=== PATIENT | female | born 1935 | race Caucasian/White ===

== ENCOUNTER 2017-12-06 15:48 | Emergency (ER) | payer MEDICARE, BC ==
[~2017-12-06] VITALS: Ht 154.9 cm; Wt 61.2 kg
[~2017-12-06 15:48] MED LIST: BENICAR; CARB200 PO; CIPDEXSU OS; COLE625 PO; LEVFLO500 PO; METPRE4DP PO; OLME20 PO; TEGRETOL; WARF6 PO; [UNRECOGNIZED DRUG - CODE] TOP
[2017-12-06 17:28] LABS: BASOPHILS ABSOLUTE AUTO 0.04 K/mm3 (0.00-0.23); BASOPHILS PERCENT AUTO 0 % (0-2); EOSINOPHILS PERCENT AUTO 1 % (0-6); Hematocrit 43.5 % (33.0-51.0); Hemoglobin 14.5 g/dL (11.5-16.0); IMMATURE GRAN ABSOLUTE AUTO 0.02 K/mm3 (0.00-0.10); IMMATURE GRAN PERCENT AUTO 0 % (0-1); LYMPHOCYTES ABSOLUTE AUTO 2.22 K/mm3 (0.84-5.20); LYMPHOCYTES PERCENT AUTO 23 % (21-46); MONOCYTES ABSOLUTE AUTO 1.19 K/mm3 (0.16-1.47); MONOCYTES PERCENT AUTO 13 % (4-13); Mean Corpuscular HGB 31.5 pg (26.0-34.0); Mean Corpuscular HGB Conc 33.3 g/dL (31.5-36.5); Mean Corpuscular Volume 95 fL (80-100); Mean Platelet Volume 10.3 fL (9.1-12.4); NEUTROPHILS ABSOLUTE AUTO 5.95 K/mm3 (1.96-9.15); NEUTROPHILS PERCENT AUTO 63 % (41-73); Platelet Count 189 K/mm3 (150-400); RDW Coefficient Variation 13.1 % (11.7-14.2); RDW Standard Deviation 45.1 fL (35.1-46.3); White Blood Cell Count 9.52 K/mm3 (4.00-11.30)
[2017-12-06 17:41] LABS: International Normalized Ratio 1.89; Prothrombin Time Results 20.1 Sec (9.7-11.5)
[2017-12-06 17:50] LABS: Alanine Aminotransfer (ALT/SGP 23 U/L (12-78); Albumin, Blood 3.9 g/dL (3.4-5.0); Alk Phos 88 U/L (50-136); Anion Gap 9 mmol/L (6-16); Aspartate Aminotrans (AST/SGOT 29 U/L (12-37); Bilirubin, Total 0.7 mg/dL (0.1-1.0); Blood Urea Nitrogen 16 mg/dL (8-24); Bun/Creatinine Ratio 21.5 (12.0-20.0); CO2, Blood 27 mmol/L (21-32); Calcium, Blood 8.8 mg/dL (8.5-10.1); Chloride, Blood 102 mmol/L (98-108); Creatinine, Blood 0.74 mg/dL (0.40-1.00); Glomerular Filtration Rate >60 (60-); Glucose, Blood 73 mg/dL (70-99); Potassium, Blood 4.3 mmol/L (3.5-5.5); Sodium, Blood 138 mmol/L (136-145); Total Protein, Blood 7.9 g/dL (6.4-8.2)
[2017-12-09 10:38] LABS: Carbamazepine 5.1 ug/mL (4.0-12.0)
== END 2017-12-06 18:42 | disposition home or self-care (01) ==
LOC: ER 15:48
PROVIDERS: Emergency Medicine
DX: R55 Syncope and collapse (principal); R79.1 Abnormal coagulation profile; Z88.2 Allergy status to sulfonamides; Z79.01 Long term (current) use of anticoagulants; I10 Essential (primary) hypertension; I48.91 Unspecified atrial fibrillation; R56.9 Unspecified convulsions; Z79.899 Other long term (current) drug therapy; W01.10XA Fall on same level from slipping, tripping and stumbling with subsequent striking against unspecified object, initial encounter
CPT/HCPCS: 36415; 70450; 72125; 80053; 80156; 85025; 85610; 85730; 93005; 93010; 99284

== ENCOUNTER → 2018-11-19 | Outpatient (CLI) | payer MEDICARE, BC ==
[2018-11-19 10:50] LABS: Campylobacter Sp Not Detected (NOT DETECT); E. Coli O157 Not Detected (NOT DETECT); Enteroaggregative E. coli-EAEC Not Detected (NOT DETECT); Enteropathogenic E. coli-EPEC Not Detected (NOT DETECT); Enterotoxigenic E. coli-ETEC Not Detected (NOT DETECT); Plesiomonas Shigelloides Not Detected (NOT DETECT); Salmonella Sp Not Detected (NOT DETECT); Shiga Toxin-prod E. coli-STEC Not Detected (NOT DETECT); Shigella/Enteroin E. coli-EIEC Not Detected (NOT DETECT); Vibrio Cholerae Not Detected (NOT DETECT); Vibrio Sp Not Detected (NOT DETECT); Yersinia Enterocolitica Not Detected (NOT DETECT)
[2018-11-19 10:51] LABS: Adenovirus F 40/41 Not Detected (NOT DETECT); Astrovirus Not Detected (NOT DETECT); Cryptosporidium Not Detected (NOT DETECT); Cyclospora Cayetanensis Not Detected (NOT DETECT); Entamoeba Histolytica Not Detected (NOT DETECT); Giardia Lamblia Not Detected (NOT DETECT); Norovirus GI/GII Not Detected (NOT DETECT); Rotavirus A Not Detected (NOT DETECT); Sapovirus Not Detected (NOT DETECT)
== END | disposition home or self-care (01) ==
LOC: LAB SHORT 06:00 → LAB 06:00 → LAB FUT 11-13 08:05
PROVIDERS: Internal Medicine Gastroenterology
DX: R19.4 Change in bowel habit (principal)
CPT/HCPCS: 87507

== ENCOUNTER → 2019-04-13 | Outpatient (CLI) | payer MEDICARE, BC | END | disposition home or self-care (01) | LOC: LAB SHORT 17:48 → LAB 17:48 | DX: R30.0 Dysuria (principal) | CPT/HCPCS: 87077; 87086; 87186 ==

== ENCOUNTER 2019-08-12 08:21 | Day surgery (SDC) | payer MEDICARE, BC ==
[~2019-08-12] VITALS: Ht 154.9 cm; Wt 61.0 kg
[~2019-08-12 08:21] MED LIST changes: +LOSARTAN POTASS50 MG PO; +PROLIA60 MG/1 ML SC; +WARF3 PO
--- NOTE | 2019-08-12 10:58 | NUR ---
MANUAL PRESSURE HELD TO RIGHT FEMORAL GROIN ACCESS SITE FOR 20MINUTES. SUZANNE PLACED. NO BLEEDING, OOZING, SWELLING OR HEMATOMA NOTED ONCE PRESSURE RELEASED. PT EDUCATED ON SIGNS AND SYMPTOMS FOR ANY POSSIBLE BLEED. CALL LIGHT WITHIN REACH. VSS REMAIN STABLE. SITE REVIEWED WITH [facility] RNs. PT REMINDED TO KEEP HEAD DOWN FOR THE NEXT FEW HOURS. RECEIVING RNs DENY ANY QUESTIONS OR CONCERNS.
--- NOTE | 2019-08-12 15:30 | NUR ---
pt dressed, iv dc'd intact, pt dc'd by wc with sigother driving pt. r groin site stable, pt amb to btr well, see rhythm strip record for VS
== END 2019-08-12 15:00 | disposition home or self-care (01) ==
LOC: MHTC 08:21
DX: Z01.810 Encounter for preprocedural cardiovascular examination (principal); I35.0 Nonrheumatic aortic (valve) stenosis; I25.10 Atherosclerotic heart disease of native coronary artery without angina pectoris; I11.9 Hypertensive heart disease without heart failure; I26.90 Septic pulmonary embolism without acute cor pulmonale; I48.21 Permanent atrial fibrillation; Z88.2 Allergy status to sulfonamides; Z79.899 Other long term (current) drug therapy
CPT/HCPCS: 36415; 85610; 93005; 93010; 93454; 99152; C1769; C1894; J1644; J2250; J3010; J7030; J7040; Q9967

== ENCOUNTER 2019-09-12 19:40 | Emergency (ER) | payer MEDICARE, BC ==
[~2019-09-12] VITALS: Ht 154.9 cm; Wt 61.7 kg
[2019-09-12 20:11] LABS: BASOPHILS ABSOLUTE AUTO 0.07 K/mm3 (0.00-0.23); BASOPHILS PERCENT AUTO 1 % (0-2); EOSINOPHILS ABSOLUTE AUTO 0.16 K/mm3 (0.00-0.68); EOSINOPHILS PERCENT AUTO 2 % (0-6); Hematocrit 37.1 % (33.0-51.0); Hemoglobin 12.4 g/dL (11.5-16.0); IMMATURE GRAN ABSOLUTE AUTO 0.02 K/mm3 (0.00-0.10); IMMATURE GRAN PERCENT AUTO 0 % (0-1); LYMPHOCYTES ABSOLUTE AUTO 1.53 K/mm3 (0.84-5.20); LYMPHOCYTES PERCENT AUTO 16 % (21-46); MONOCYTES PERCENT AUTO 11 % (4-13); Mean Corpuscular HGB 32.2 pg (26.0-34.0); Mean Corpuscular HGB Conc 33.4 g/dL (31.5-36.5); Mean Corpuscular Volume 96 fL (80-100); Mean Platelet Volume 10.6 fL (9.1-12.4); NEUTROPHILS ABSOLUTE AUTO 6.76 K/mm3 (1.96-9.15); NEUTROPHILS PERCENT AUTO 70 % (41-73); Platelet Count 220 K/mm3 (150-400); RDW Coefficient Variation 12.1 % (11.7-14.2); RDW Standard Deviation 42.8 fL (35.1-46.3); Red Blood Cell Count 3.85 M/mm3 (3.80-5.20); White Blood Cell Count 9.64 K/mm3 (4.00-11.30)
[2019-09-12 20:27] LABS: International Normalized Ratio 1.81; Prothrombin Time Results 18.2 Sec (9.7-11.5)
[2019-09-12] MEDS ORDERED: ENOX60I SC (21:39)
[2019-09-12 22:00] LABS: Anion Gap 7 mmol/L (6-16); Blood Urea Nitrogen 19 mg/dL (8-24); CO2, Blood 25 mmol/L (21-32); Calcium, Blood 8.3 mg/dL (8.5-10.1); Chloride, Blood 105 mmol/L (98-108); Creatinine, Blood 0.76 mg/dL (0.40-1.00); Glomerular Filtration Rate >60 (60-); Glucose, Blood 99 mg/dL (70-99); Potassium, Blood 4.2 mmol/L (3.5-5.5); Sodium, Blood 137 mmol/L (136-145)
== END 2019-09-12 23:45 | disposition home or self-care (01) ==
LOC: ER 19:40
PROVIDERS: Physician Assistant
DX: K91.871 Postprocedural hematoma of a digestive system organ or structure following other procedure (principal); I10 Essential (primary) hypertension; Z88.2 Allergy status to sulfonamides; Z79.899 Other long term (current) drug therapy; Z79.01 Long term (current) use of anticoagulants
CPT/HCPCS: 36415; 80048; 85025; 85610; 85730; 93926; 99284-25; A9270; A9270-GY

== ENCOUNTER 2019-09-13 12:02 | Inpatient (IN) | payer MEDICARE, BC ==
[~2019-09-13] VITALS: Ht 154.9 cm; Wt 61.5 kg
[~2019-09-13 12:02] MED LIST changes: +ENOX60I SC
--- NOTE | 2019-09-13 18:33 | NUR ---
PT ADMITTED. PT ADMITTED AT 1814. PT IN STABLE CONDITION. SBP 89. HR ELEVATED AT 104. PT ENCOURAGED TO INCREASE PO INTAKE. PT DR. SANTIAGO ORDER. NO IV AT THIS TIME & LABS PUSHED TO AM PER DR. SANTIAGO. PT RESTING IN BED CURRENTLY. CALL LIGHT IN REACH. WILL CONTINUE TO MONITOR.
[2019-09-14 03:48] LABS: BASOPHILS ABSOLUTE AUTO 0.03 K/mm3 (0.00-0.23); BASOPHILS PERCENT AUTO 0 % (0-2); EOSINOPHILS ABSOLUTE AUTO 0.01 K/mm3 (0.00-0.68); EOSINOPHILS PERCENT AUTO 0 % (0-6); Hematocrit 26.1 % (33.0-51.0); Hemoglobin 8.7 g/dL (11.5-16.0); IMMATURE GRAN ABSOLUTE AUTO 0.07 K/mm3 (0.00-0.10); IMMATURE GRAN PERCENT AUTO 1 % (0-1); LYMPHOCYTES ABSOLUTE AUTO 1.27 K/mm3 (0.84-5.20); LYMPHOCYTES PERCENT AUTO 9 % (21-46); MONOCYTES ABSOLUTE AUTO 1.38 K/mm3 (0.16-1.47); MONOCYTES PERCENT AUTO 10 % (4-13); Mean Corpuscular HGB 32.5 pg (26.0-34.0); Mean Corpuscular HGB Conc 33.3 g/dL (31.5-36.5); Mean Corpuscular Volume 97 fL (80-100); NEUTROPHILS PERCENT AUTO 81 % (41-73); Platelet Count 190 K/mm3 (150-400); RDW Coefficient Variation 12.3 % (11.7-14.2); RDW Standard Deviation 43.7 fL (35.1-46.3); Red Blood Cell Count 2.68 M/mm3 (3.80-5.20); White Blood Cell Count 14.16 K/mm3 (4.00-11.30)
--- NOTE | 2019-09-14 04:13 | NUR ---
SHIFT SUMMARY PT HAS BEEN EXPERIENCING PAIN IN THE LEFT GROIN THIS SHIFT. SHE STATED THIS AM THAT IT HAS RADIATED TO KNEE. PEDAL PULSES STRONG BILATERALLY. NO OTHER COMPLAINTS THROUGHOUT THE SHIFT. WILL CONTINUE TO MONITOR.
[2019-09-14 05:51] LABS: International Normalized Ratio 3.73; Prothrombin Time Results 35.1 Sec (9.7-11.5)
[2019-09-14 12:56] LABS: Hematocrit 24.5 % (33.0-51.0); Hemoglobin 8.3 g/dL (11.5-16.0); Mean Corpuscular HGB 33.1 pg (26.0-34.0); Mean Corpuscular HGB Conc 33.9 g/dL (31.5-36.5); Mean Corpuscular Volume 98 fL (80-100); Mean Platelet Volume 10.2 fL (9.1-12.4); Platelet Count 183 K/mm3 (150-400); RDW Coefficient Variation 12.5 % (11.7-14.2); RDW Standard Deviation 44.3 fL (35.1-46.3); Red Blood Cell Count 2.51 M/mm3 (3.80-5.20)
--- NOTE | 2019-09-14 13:45 | NUR ---
DR. REA NOTIFIED OF PT NOON LAB RESULTS. WBC INCREASED. DR. GREENE. WILL CONITNUE TO MONITOR.
--- NOTE | 2019-09-14 17:18 | NUR ---
SHIFT SUMMARY PT SWELLING TO L GROIN HAS DECREASED. PT STATES PAIN IS STILL VERY PERSISTANT. PT TOLERATING 25MCG Q4H PRN. NO OTHER CHANGES IN ASSESSMENT AT THIS TIME. PT TO START PHYSICAL THERAPY TOMORROW. HR ELEVATED IN THE LOW 100S BUT CONSISTANT WITH THIS HOSPITALIZATION. PT CURRENTLY IN AFIB WITH IRREGULAR HR. OTHER VITALS STABLE. AFIBRILE. PT INC MOST THE SHIFT. VERY FOUL SMELLING URINE. WILL CONTINUE TO MONITOR UNTIL TURNOVER IS COMPLETE.
[2019-09-15 04:09] LABS: BASOPHILS ABSOLUTE AUTO 0.03 K/mm3 (0.00-0.23); BASOPHILS PERCENT AUTO 0 % (0-2); EOSINOPHILS ABSOLUTE AUTO 0.01 K/mm3 (0.00-0.68); EOSINOPHILS PERCENT AUTO 0 % (0-6); Hematocrit 21.3 % (33.0-51.0); IMMATURE GRAN ABSOLUTE AUTO 0.22 K/mm3 (0.00-0.10); IMMATURE GRAN PERCENT AUTO 1 % (0-1); LYMPHOCYTES ABSOLUTE AUTO 2.17 K/mm3 (0.84-5.20); LYMPHOCYTES PERCENT AUTO 10 % (21-46); MONOCYTES ABSOLUTE AUTO 2.46 K/mm3 (0.16-1.47); MONOCYTES PERCENT AUTO 12 % (4-13); Mean Corpuscular HGB 32.9 pg (26.0-34.0); Mean Corpuscular HGB Conc 32.9 g/dL (31.5-36.5); Mean Corpuscular Volume 100 fL (80-100); Mean Platelet Volume 10.1 fL (9.1-12.4); NEUTROPHILS ABSOLUTE AUTO 16.13 K/mm3 (1.96-9.15); NEUTROPHILS PERCENT AUTO 77 % (41-73); NRBC ABSOLUTE 0.05 K/mm3 (0.00-0.02); NRBC Auto 0.2 /100 WBC (0.0-0.2); Platelet Count 234 K/mm3 (150-400); RDW Coefficient Variation 12.8 % (11.7-14.2); RDW Standard Deviation 45.8 fL (35.1-46.3); Red Blood Cell Count 2.13 M/mm3 (3.80-5.20); White Blood Cell Count 21.02 K/mm3 (4.00-11.30)
[2019-09-15 04:30] LABS: Prothrombin Time Results 63.8 Sec (9.7-11.5)
[2019-09-15 04:34] LABS: International Normalized Ratio 7.2
--- NOTE | 2019-09-15 05:45 | NUR ---
PAGED AT 0448 RE:CRITICAL INR NOW 7.2, WAS 3.73 AND ATTEMPTED A 2ND TIME 0515. HE CALLED BACK AT 0540 AND INSTRUCTED TO CONT TO MONITOR INR. THIS RN ALSO REPORTED TRENDING DOWNWARD HGB/HCT NOW 7.0/21.3, WAS 8.3/24.5. NEW ORDER RECIEVED TO TRANSFUSE 1 UNIT PRBC'S. ORDERS PLACED FOR TYPE AND CROSS W/TRANSFUSION. WILL ADMINISTER WHEN ARRIVES FROM LAB.
--- NOTE | 2019-09-15 06:18 | NUR ---
LAB HAVING DIFFICULTY W/TYPE AND CROSS DRAW BUT CONTINUING TO ATTEMPT.
--- NOTE | 2019-09-15 06:19 | NUR ---
PT REPORTS SENSATION OF INCREASED SWELLING TO L.LEG/GROIN/FELIX AREA. RN AGREES D/T SKIN FEELING SLIGHTLY TIGHTER AND MORE FIRM TO L.INNER THIGH/GROIN. BRUISING DOESN'T APPEAR WORSE THOUGH.
--- NOTE | 2019-09-15 06:40 | NUR ---
SUMMARY: A/OX4, CALLS APPROPRIATELY AND SPECIFIES NEEDS. PT ON BEDREST AND USES BEDPAN W/LOG ROLL ASSIST. HGB/HCT TRENDED DOWN THIS SHIFT W/NEW ORDERS TO TYPE AND CROSS AND TRANSFUSE 1 UNIT. PT WAS DIFFICULT LAB DRAW SO WE'RE STILL AWAITING BLOOD FROM LAB. INR WAS ALSO CRITICAL THIS AM, NOW 7.2 BUT INSTRUCTED TO CONTINUE MONITORING IT. L.INNER AND POSTERIOR THIGH AND GROIN APPEAR MORE SWOLLEN AND FIRM THIS AM. BRUISING IS DARKER IN COLOR TO THAT REGION BUT BRUISES TO ABDO AND ELSEWHERE SEEM UNCHANGED. PT STATES PAIN IS ALSO WORSE TO L.LEG THIS AM BUT HAS REFUSED PRN PAIN MEDS EXCEPT FENT 25MCG IV PRN X1. ICE PACKS REMAINS IN PLACE. PT HAS KNOWN AFIB BUT COUMADIN IS ON HOLD. NO ACUTE CHANGES, VSS/AFEBRILE DESPITE S/S WORSENING BLEEDING. WCTM AND REPORT TO DAY RN PLAN TO ROLL PT DURING SHIFT REPORT TO ALLOW DAY RN TO THOROUGHLY VISUALIZE HEMATOMA AND SWELLING AT START OF SHIFT.
--- NOTE | 2019-09-15 17:32 | NUR ---
SHIFT SUMMARY PATIENT MEDICATED X2 FOR PAIN THIS SHIFT. DENIES NAUSE AND SHORTNESS OF BREATH. PATIETN HAD ONE UNIT OF RBC'S TODAY. PATIENT HAD CT OF LEFT LEG HEMATOMA. PT DEFERRED TODAY. AT BEDSIDE. CALL LIGHT IN REACH.
[2019-09-15 18:22] LABS: Hemoglobin 7.6 g/dL (11.5-16.0); Mean Corpuscular HGB 31.3 pg (26.0-34.0); Mean Platelet Volume 9.4 fL (9.1-12.4); Platelet Count 200 K/mm3 (150-400); RDW Coefficient Variation 16.4 % (11.7-14.2); RDW Standard Deviation 55.3 fL (35.1-46.3); Red Blood Cell Count 2.43 M/mm3 (3.80-5.20); White Blood Cell Count 19.82 K/mm3 (4.00-11.30)
[2019-09-15 18:23] LABS: Mean Corpuscular Volume 95 fL (80-100)
[2019-09-15 18:37] LABS: International Normalized Ratio 1.65; Prothrombin Time Results 16.7 Sec (9.7-11.5)
--- NOTE | 2019-09-16 05:05 | NUR ---
SHIFT SUMMARY: 83 Y/O FEMALE RESTED COMFORTABLY ALL SHIFT, DENIES NEED FOR PAIN OR NAUSEA, LEFT GROIN SLIGHTLY HARD TO TOUCH WITH BRUISING FROM ANTERIOR GROIN TO POSTERIOR ASPECT OF LEFT BUTTOCK, ALERT AND ORIENTED X 4, HAPPY AND COOPERATIVE, BED ALARM APPLIED, BED LOW POSITION WITH CALL LIGHT AT SIDE.
[2019-09-16 05:41] LABS: International Normalized Ratio 1.08
[2019-09-16 05:42] LABS: Prothrombin Time Results 11.4 Sec (9.7-11.5)
[2019-09-16 06:50] LABS: Hematocrit 22.4 % (33.0-51.0); Hemoglobin 7.3 g/dL (11.5-16.0)
[2019-09-16 13:21] LABS: Hematocrit 25.3 % (33.0-51.0); Hemoglobin 8.3 g/dL (11.5-16.0)
--- NOTE | 2019-09-16 16:43 | NUR ---
SHIFT SUMMARY NO ACUTE CHANGES. PATIENT DENIES PAIN, NAUSEA, AND SHORTNESS OF BREATH. PATIENT STATES LEFT LEG IS FEELING SOMEWHAT BETTER. PATIENT WORKED WITH PT TODAY. UP ONE ASSIST WITH FWW. PATIENT IS LIKELY A SNF DISCHARGE IN THE NEXT FEW DAYS. CALL LIGHT IN REACH.
[2019-09-16 21:09] LABS: Hematocrit 20.3 % (33.0-51.0); Hemoglobin 6.6 g/dL (11.5-16.0)
--- NOTE | 2019-09-16 22:09 | NUR ---
2115 HG 6.6; Brooke WILSON, SYSTEM SUPPORT TECHNICIAN ADVISED WITH ORDERS FOR REDRAW HG/HCT 09/17/19. Brooke WILSON ADVISED OF PREVIOUS LABS RESULTS, VITAL SIGNS STABLE, NO PAIN OR ACTIVE BLEEDING NOTED.
--- NOTE | 2019-09-17 04:38 | NUR ---
SHIFT SUMMARY: 83 Y/O FEMALE RESTED COMFORTABLY ALL SHIFT, HAPPY AND COOPERATIVE, DENIES PAIN OR NAUSEA, LEFT GROIN AND LEG HAS DECREASED HARDNESS TO TISSUE NOTED WHILE ELEVATED ON ONE PILLOW, BED ALARM APPLIED, BED LOW POSITION WITH CALL LIGHT AT SIDE.
[2019-09-17 05:09] LABS: Hematocrit 20.7 % (33.0-51.0); Hemoglobin 6.6 g/dL (11.5-16.0)
[2019-09-17 05:19] LABS: International Normalized Ratio 0.98; Prothrombin Time Results 10.4 Sec (9.7-11.5)
[2019-09-17 13:23] LABS: Hemoglobin 9.3 g/dL (11.5-16.0)
[2019-09-17 22:23] LABS: Hematocrit 24.8 % (33.0-51.0); Hemoglobin 8.1 g/dL (11.5-16.0)
--- NOTE | 2019-09-17 23:43 | NUR ---
2000 PTS HAS THE FOLLOWING MEASUREMENTS IN CIRCUMFERENCE TO LOWER EXTREMITIES: LEFT CALF: 38 CM LEFT THIGH: 53 CM RIGHT CALF: 34.5 CM RIGHT THIGH: 47 CM LEFT GROIN AND POSTERIOR BUTTOCK BRUISED AND SOFT TO TOUCH, DENIES NEED FOR ANY NARCOTICS AT THIS TIME. LEFT FOOT WARM, SLIGHT NUMBNESS VOICED, DIFFICULTY MOVING LEG WITHOUT ASSISTANCE. ALERT AND ORIENTED X 4, BED ALARM APPLIED, BED LOW POSITION WITH CALL LIGHT AT SIDE.
[2019-09-18 06:18] LABS: International Normalized Ratio 0.97; Prothrombin Time Results 10.3 Sec (9.7-11.5)
--- NOTE | 2019-09-18 07:15 | NUR ---
SHIFT SUMMARY: 83 Y/O FEMALE RESTED COMFORTABLY ALL SHIFT, PT STILL HAS LARGE AMOUNT BRUISING NOTED LEFT UPPER THIGH/ABD AND LEFT BUTTOCK, SEE PREVIOUS NOTE FOR MEASUREMENTS TAKEN LAST PM ON EXTREMITY CIRCUMFERENCES, NO HCG/HCT LABS WERE DRAWN THIS AM, PT 10.3, INR 0.97, BED LOW POSITION WITH CALL LIGHT AT SIDE, BED ALARM APPLIED.
[2019-09-18 08:49] LABS: Hematocrit 24.6 % (33.0-51.0); Hemoglobin 7.9 g/dL (11.5-16.0)
[2019-09-18 16:47] LABS: Hematocrit 26.8 % (33.0-51.0); Hemoglobin 8.8 g/dL (11.5-16.0)
--- NOTE | 2019-09-18 17:44 | NUR ---
CALLED DR WHITLEY PRIOR TO ADMINISTRATION OF COUMADIN TO CONFIRM IT SHOULD BE GIVEN; GIVEN PT H&H. RECENT H&H UP TO 8.8 FROM 7.9 THIS MORNING.
--- NOTE | 2019-09-18 18:00 | NUR ---
SHIFT SUMMARY- PT HAS BEEN MORE AMBULATORY TODAY THAN PREVIOUS, SHE WALKED IN THE HALLS WITH THE ASSEMBLER BONDING APPROXIMATELY 250 FT. PT HAS BEEN MEDICATED WITH TYLENOL ONCE THIS SHIFT AND SHE STATED THE PAIN SEEMS BETTER THIS EVENING. LEG APPEARS TO BE SLIGHTLY SMALLER THAN AT THE START OF THE SHIFT WELL. MEASUREMENTS WERE TAKEN AT THE START OF THE SHIFT 0730 AND AGAIN AT THE END 1744. MEASUREMENTS WERE TAKEN OF THE THIGH AND CALF OF EACH LEG IN THE AREAS MARKED BY THE PREVIOUS SHIFT RN WHEN HE OBTAINED MEASUREMENTS. MEASUREMENTS WERE FOLLOWS: 729 LEFT CALF: 38 CM LEFT THIGH: 53.5 CM RIGHT CALF: 34 CM RIGHT THIGH: 46 CM 1744 LEFT CALF: 36.5 CM LEFT THIGH: 54.25 CM RIGHT CALF: 34.5 CM RIGHT THIGH: 46 CM PT REQUESTED ANOTHER WALK, WILL ATTEMPT TO HELP HER WITH THAT PRIOR TO SHIFT CHANGE.
[2019-09-19 01:02] LABS: Hematocrit 25.8 % (33.0-51.0); Hemoglobin 8.4 g/dL (11.5-16.0)
[2019-09-19 05:47] LABS: International Normalized Ratio 1.05; Prothrombin Time Results 11.1 Sec (9.7-11.5)
--- NOTE | 2019-09-19 07:36 | NUR ---
PT WAS CALM AND COOPERATIVE WITH CARE THIS NOC SHIFT. RECEVED TYLENOL FOR PAIN, WAS OOB TO WALK IN THE [place] AND TO BSC NEEDED. VOIDING OK. THE BLOOD IN HER THIGH IS POOLING TO THE POSTERIOR AND HER SKIN IS VERY DARK PURPLE IN THAT AREA. SHE FINDS MOVEMENT PAINFUL. SHE WOULD LIKE TO SEE DR SONG IF POSSIBLE SINCE HER REFERRED HER TO [place] FOR THE PROCEDUIRE IN [place] THAT PRECEDED THE HEMATOMA. PASSED INFO TO DAY NURSE.
[2019-09-19 08:55] LABS: Hematocrit 26.8 % (33.0-51.0); Hemoglobin 8.6 g/dL (11.5-16.0)
[2019-09-19 17:03] LABS: Hematocrit 29.4 % (33.0-51.0); Hemoglobin 9.3 g/dL (11.5-16.0)
--- NOTE | 2019-09-19 18:17 | NUR ---
SHIFT SUMMARY PT AXO, PLEASANT AND COOPERATIVE WITH CARE. HGB 9.3 AT 1639, SEE LABS. VSS. PT MOTIVATED TO AMBULATE AND ASKS TO DO SO THROUGHOUT THE SHIFT. PT UP WITH 1 ASSIST WITH FWW AND GB. PT CONTINUES TO BE INCONTINENT. ATTENDS CDI. BED IN LOW POSITION, CALL LIGHT WITHIN REACH. PT'S REQUESTED MEDICATION TO HELP PT SLEEP, DR WHITLEY NOTIFIED, NEW ORDERS IN PLACE. PT UP TO RECLINER THROUGHOUT THE DAY.
--- NOTE | 2019-09-19 19:37 | NUR ---
PATIENT RESTING IN BED, DENIES PAIN AT THIS TIME, NO APPARENT DISTRESS NOTED. PUT PATIENT ON BEDPAN PER HER REQUEST, ALSO 1 INCONTINENT VOID. BED LOW AND LOCKED. CALL FRAIRE WITHIN REACH
[2019-09-20 01:43] LABS: Hematocrit 28.5 % (33.0-51.0)
[2019-09-20 01:58] LABS: International Normalized Ratio 1.19; Prothrombin Time Results 12.4 Sec (9.7-11.5)
--- NOTE | 2019-09-20 16:58 | NUR ---
SHIFT SUMMARY PT AXO, PLEASANT AND COOPERATIVE WITH CARE. IV PATENT THOUGH POWERGLIDE IN [place]RISTY DOES NOT DRAW. UP WITH 1 ASSIST WITH FWW AND GB. CONTINUES TO BE MOTIVATED TO AMBULATE AND STATES THAT PAIN DECREASES WITH MOVEMENT. MEASUREMENTS OF THE BILATERAL LEGS, THIGH AND CALF THE SAME YESTERDAY. L. CALF:38CM, L THIGH:52.5 CM, R CALF: 34.5 CM, R. THIGH: 44 CM. VSS. NO ACUTE CHANGES. BED IN LOW POSITION, CALL LIGHT WITHIN REACH
--- NOTE | 2019-09-21 04:28 | NUR ---
SHIFT SUMMARY NO ACUTE CHANGES THIS SHIFT. PT REPORTS THAT SHE WAS NOT ABLE TO GET MUCH SLEEP THE NIGHT PRIOR. SHE RECEIVED BENEDRYL HS AND REPORTS THAT SHE WAS ABLE TO GET SOME REST, AND STATES THAT SHE HAD A GOOD NIGHT. PT DENIES PAIN OR N/T. LEG SWELLING HAS DECREASED. PT HAS BEEN UP AND AMBULATING TO THE BSC, AND HAS REQUESTED TO SIT IN THE CHAIR LATER THIS MORNING. PLAN IS FOR DC SNF, ONCE BED IS AVALIBLE.
[2019-09-21 04:56] LABS: Hematocrit 26.9 % (33.0-51.0); Hemoglobin 8.6 g/dL (11.5-16.0)
[2019-09-21 05:10] LABS: International Normalized Ratio 1.65; Prothrombin Time Results 16.7 Sec (9.7-11.5)
--- NOTE | 2019-09-21 08:54 | NUR ---
RIGHT CALF MEASURES:34cm RIGHT THIGH MEASURES: 53cm LEFT CALF MEASURES:38cm LEFT THIGH MEASURES: 55.5cm
[2019-09-21] MEDS ORDERED: BENADRYL25 MG PO (09:57)
[2019-09-21] MEDS ORDERED: ACET325 PO (09:57)
[2019-09-21] MEDS ORDERED: ONDA4 PO (09:58)
[2019-09-21] MEDS ORDERED: DOCU100 PO (09:58)
[2019-09-21] MEDS ORDERED: OXYC5 PO (09:59)
--- NOTE | 2019-09-21 11:17 | NUR ---
UPDATED BY BLEACH MIXERLISETTE, PATIENT TO BE DISCHARGED TO [facility] AT APPROX 1500 THIS AFTERNOON. PATIENT NOTIFIED OF THIS.
--- NOTE | 2019-09-21 11:52 | NUR ---
IV AND POWER GLIDE REMOBED AND PRESSURE DRESSINGS APPLIED; PREPPING FOR DISCHARGE.
--- NOTE | 2019-09-21 14:52 | NUR ---
PATIENT PICKED UP BY TRANSPORT AT 1451. GOING TO [facility]. LEFT WITH PATIENT.
== END 2019-09-21 14:50 | DRG 605 ==
LOC: ER 12:02 → MEDS 17:20 → ENPENDDIS 09-21 09:53 → MEDS 09-21 14:50
PROVIDERS: Emergency Medicine; Hospitalist; Internal Medicine; ADMIT Hospitalist
PROC: 30233N1 Transfusion of Nonautologous Red Blood Cells into Peripheral Vein, Percutaneous Approach (ICD-10-PCS; principal; 2019-09-15)
DX: S30.1XXA Contusion of abdominal wall, initial encounter (principal); I48.20 Chronic atrial fibrillation, unspecified; D62 Acute posthemorrhagic anemia; Z79.01 Long term (current) use of anticoagulants; I10 Essential (primary) hypertension; Z95.4 Presence of other heart-valve replacement
CPT/HCPCS: 36415; 36430; 73701; 85014; 85018; 85025; 85027; 85610; 86850; 86900; 86901; 86923; 93971; 96374; 96376; 97110; 97116; 97162; 97530; 99284-25; A9270; C1751; G0378; J3010; J7040; P9016; Q0163; Q9967

== ENCOUNTER → 2019-10-22 | Outpatient (CLI) | payer MEDICARE, BC ==
[~2019-10-22] MED LIST changes: +ACET325 PO; +BENADRYL25 MG PO; +DOCU100 PO; +ONDA4 PO; +OXYC5 PO
== END | disposition home or self-care (01) ==
LOC: LAB 19:31 → LAB SHORT 19:31
DX: N39.41 Urge incontinence (principal)
CPT/HCPCS: 87077; 87086; 87186

== ENCOUNTER → 2021-07-20 | Outpatient (CLI) | payer MEDICARE, BC ==
[2021-07-20 15:29] LABS: BASOPHILS ABSOLUTE AUTO 0.05 K/mm3 (0.00-0.23); BASOPHILS PERCENT AUTO 1 % (0-2); EOSINOPHILS ABSOLUTE AUTO 0.09 K/mm3 (0.00-0.68); EOSINOPHILS PERCENT AUTO 1 % (0-6); Hemoglobin 14.1 g/dL (11.5-16.0); IMMATURE GRAN ABSOLUTE AUTO 0.02 K/mm3 (0.00-0.10); IMMATURE GRAN PERCENT AUTO 0 % (0-1); LYMPHOCYTES ABSOLUTE AUTO 2.29 K/mm3 (0.84-5.20); LYMPHOCYTES PERCENT AUTO 27 % (21-46); MONOCYTES ABSOLUTE AUTO 0.78 K/mm3 (0.16-1.47); MONOCYTES PERCENT AUTO 9 % (4-13); Mean Corpuscular HGB 31.4 pg (26.0-34.0); Mean Corpuscular HGB Conc 33.6 g/dL (31.5-36.5); Mean Corpuscular Volume 94 fL (80-100); Mean Platelet Volume 10.3 fL (9.1-12.4); NEUTROPHILS ABSOLUTE AUTO 5.21 K/mm3 (1.96-9.15); NEUTROPHILS PERCENT AUTO 62 % (41-73); Platelet Count 199 K/mm3 (150-400); RDW Coefficient Variation 12.9 % (11.7-14.2); Red Blood Cell Count 4.49 M/mm3 (3.80-5.20); White Blood Cell Count 8.44 K/mm3 (4.00-11.30)
[2021-07-20 17:02] LABS: Alanine Aminotransfer (ALT/SGP 19 U/L (12-78); Albumin, Blood 3.9 g/dL (3.4-5.0); Albumin/Globulin Ratio 1.1 (0.8-1.8); Alk Phos 90 U/L (50-136); Anion Gap 3 mmol/L (6-16); Aspartate Aminotrans (AST/SGOT 16 U/L (12-37); Bilirubin, Total 0.7 mg/dL (0.1-1.0); Blood Urea Nitrogen 21 mg/dL (8-24); Bun/Creatinine Ratio 29.1 (12.0-20.0); CO2, Blood 29 mmol/L (21-32); Calcium, Blood 8.8 mg/dL (8.5-10.1); Carbamazepine 3.4 ug/mL (4.0-12.0); Chloride, Blood 104 mmol/L (98-108); Creatinine, Blood 0.72 mg/dL (0.40-1.00); Globulin, Blood 3.4 g/dL (2.2-4.0); Glomerular Filtration Rate >60 (60-); Glucose, Blood 84 mg/dL (70-99); Potassium, Blood 3.8 mmol/L (3.5-5.5); Sodium, Blood 136 mmol/L (136-145); Total Protein, Blood 7.3 g/dL (6.4-8.2)
== END | disposition home or self-care (01) ==
LOC: LAB 11:30 → LAB SHORT 11:30
PROVIDERS: Family Medicine
DX: Z79.01 Long term (current) use of anticoagulants (principal); Z51.81 Encounter for therapeutic drug level monitoring; G40.909 Epilepsy, unspecified, not intractable, without status epilepticus
CPT/HCPCS: 80053; 80156; 85025

== ENCOUNTER 2022-03-01 09:42 | Day surgery (SDC) | payer MEDICARE, BC ==
[~2022-03-01] VITALS: Ht 154.9 cm; Wt 57.2 kg
[~2022-03-01 09:42] MED LIST changes: +XARELTO20 MG PO
[2022-03-01] MEDS ORDERED: ELIQUIS2.5 MG PO (10:14)
--- NOTE | 2022-03-01 11:21 | NUR ---
03/01/22 1121 Juliano Dickerson PT REPORTS HAVING PACEMAKER IN PLACE BUT "IT HASNT WORKED IN 20-25 YEARS" BOTH DR SAUCEDA AND DR PEREZ AWARE. OKAY TO PROCEDE PER BOTH DOCTORS.
== END 2022-03-01 11:37 | disposition home or self-care (01) ==
LOC: ORSCSDS 09:42
PROVIDERS: Ophthalmology
PROC: 08RJ3JZ Replacement of Right Lens with Synthetic Substitute, Percutaneous Approach (ICD-10-PCS; principal; 2022-03-01 11:00)
DX: H25.11 Age-related nuclear cataract, right eye (principal); I48.91 Unspecified atrial fibrillation; I10 Essential (primary) hypertension; R56.9 Unspecified convulsions; Z79.01 Long term (current) use of anticoagulants; Z79.899 Other long term (current) drug therapy
CPT/HCPCS: J2001; J2250; J3010; J3301; J7040; V2632

== ENCOUNTER → 2022-07-09 | Outpatient (CLI) | payer MEDICARE, BC ==
[~2022-07-09] MED LIST changes: +ELIQUIS2.5 MG PO
== END | disposition home or self-care (01) ==
LOC: LAB SHORT 15:51 → LAB 15:51
DX: N39.0 Urinary tract infection, site not specified (principal)
CPT/HCPCS: 87077; 87086; 87186

== ENCOUNTER → 2022-08-16 | Outpatient (CLI) | payer MEDICARE, BC | END | disposition home or self-care (01) | LOC: LAB SHORT 16:21 → LAB 16:21 | DX: N39.0 Urinary tract infection, site not specified (principal) | CPT/HCPCS: 87077; 87086; 87186 ==

== ENCOUNTER → 2023-09-13 | Outpatient (CLI) | payer MEDICARE, BC | LOC: LAB 16:25 → LAB SHORT 16:25 | DX: N39.0 Urinary tract infection, site not specified (principal) | CPT/HCPCS: 87077; 87086; 87186 ==